=== PATIENT | female | born 1960 | race Caucasian/White ===

== ENCOUNTER → 2020-07-03 | Outpatient (CLI) | payer OTHER ==
[~2020-07-03] MED LIST: AMLODIPINE-BEN1 EAC3 PO; AMLODIPINE-BEN1 EAC4 PO; ASPIRIN EC81 MG PO; ASPIRIN325 MG PO; ATORVASTATIN CA40 MG PO; BENAZEPRIL HCL10 MG PO; NORCO 7.5-3251 EACH PO; WARFARIN SODIUM3 MG PO
== END ==
LOC: MAMO 13:22
DX: Z12.31 Encounter for screening mammogram for malignant neoplasm of breast (principal)
CPT/HCPCS: 77063; 77067

== ENCOUNTER → 2020-07-04 | Outpatient (CLI) | payer OTHER ==
[2020-07-04 08:54] LABS: HEMOGLOBIN 13.7 gm/dl (12.3-15.3); RED BLOOD COUNT 4.2 M/UL (4.00-5.10); WHITE BLOOD COUNT 4.7 K/UL (4.5-11.0)
[2020-07-04 09:22] LABS: BUN/CREATININE RATIO 23 (0-10)
== END ==
LOC: LAB 08:32
PROVIDERS: Nurse Practitioner Family
DX: E78.5 Hyperlipidemia, unspecified (principal); I10 Essential (primary) hypertension
CPT/HCPCS: 36415; 80053; 80061; 85025

== ENCOUNTER → 2020-08-01 | Outpatient (CLI) | payer OTHER | LOC: KOH-I 12:34 | DX: Z87.891 Personal history of nicotine dependence (principal) | CPT/HCPCS: 71271 ==

== ENCOUNTER → 2020-08-07 | Outpatient (CLI) | payer OTHER ==
[2020-08-07 13:35] LABS: HEMOGLOBIN 12.7 gm/dl (12.3-15.3); RED BLOOD COUNT 3.99 M/UL (4.00-5.10); WHITE BLOOD COUNT 5.2 K/UL (4.5-11.0)
[2020-08-08 13:12] LABS: ANTI-CENTROMERE B ANTIBODIES <0.2 AI (0.0-0.9); ANTISCLERODERMA-70 ANTIBODIES <0.2 AI (0.0-0.9); RNP ANTIBODIES <0.2 AI (0.0-0.9); SJOGREN'S ANTI-SS-A 0.7 AI (0.0-0.9); SJOGREN'S ANTI-SS-B <0.2 AI (0.0-0.9); SMITH ANTIBODIES <0.2 AI (0.0-0.9)
[2020-08-08 23:07] LABS: CCP ANTIBODIES IGG/IGA 4 units (0-19)
[2020-08-09 12:15] LABS: ANTIHISTONE ANTIBODIES 1.5 Units (0.0-0.9)
== END ==
LOC: LAB 12:44
PROVIDERS: Nurse Practitioner Family
DX: D89.9 Disorder involving the immune mechanism, unspecified (principal); M25.50 Pain in unspecified joint; R76.8 Other specified abnormal immunological findings in serum
CPT/HCPCS: 36415; 80053; 81001; 82570; 84156; 85025; 86038; 86200; 86235

== ENCOUNTER 2020-09-29 21:30 | Observation (INO) | payer OTHER ==
[~2020-09-29] VITALS: Ht 160 cm; Wt 77.6 kg
[~2020-09-29 21:30] MED LIST changes: -AMLODIPINE-BEN1 EAC4 PO; -ASPIRIN EC81 MG PO; -ATORVASTATIN CA40 MG PO; -BENAZEPRIL HCL10 MG PO; -WARFARIN SODIUM3 MG PO
[2020-09-30 00:22] LABS: HEMOGLOBIN 13.6 gm/dl (12.3-15.3); RED BLOOD COUNT 4.2 M/UL (4.00-5.10); WHITE BLOOD COUNT 7.8 K/UL (4.5-11.0)
[2020-09-30] MEDS ORDERED: AMLODIPINE-BEN1 EAC4 PO (08:44)
[2020-09-30] MEDS ORDERED: BENAZEPRIL HCL10 MG PO (08:44)
[2020-09-30] MEDS ORDERED: ATORVASTATIN CA40 MG PO (08:45)
[2020-09-30] MEDS ORDERED: WARFARIN SODIUM3 MG PO ×2 (08:46→08:47)
[2020-09-30] MEDS ORDERED: ASPIRIN EC81 MG PO (08:49)
--- NOTE | 2020-09-30 18:42 | NUR ---
patient alert and oriented and stated she is driving herself home. she does not have anyone to drive her home. patient refused to call friends or family.
== END 2020-09-30 18:36 | disposition home or self-care (01) ==
LOC: ER1 21:30 → CDU 09-30 00:13 → M/S 09-30 00:13 → CDU 09-30 00:13 → M/S 09-30 07:35
PROVIDERS: Emergency Medicine; Physician Assistant; ADMIT Internal Medicine Infectious Disease
DX: R07.89 Other chest pain (principal); R77.8 Other specified abnormalities of plasma proteins; D68.61 Antiphospholipid syndrome; I69.951 Hemiplegia and hemiparesis following unspecified cerebrovascular disease affecting right dominant side; I69.998 Other sequelae following unspecified cerebrovascular disease; E86.0 Dehydration; I10 Essential (primary) hypertension; R11.2 Nausea with vomiting, unspecified; R19.7 Diarrhea, unspecified; E78.5 Hyperlipidemia, unspecified; Z87.891 Personal history of nicotine dependence; Z79.82 Long term (current) use of aspirin; Z79.899 Other long term (current) drug therapy; Z79.01 Long term (current) use of anticoagulants; Z86.718 Personal history of other venous thrombosis and embolism; Z20.822 Contact with and (suspected) exposure to COVID-19
CPT/HCPCS: ECHO; 36415; 71045; 80048; 80053; 82550; 82553; 83036; 83690; 83735; 83874; 83880; 84439; 84443; 84484; 84550; 85025; 85610; 85730; 93005; 93306; 99285; G0378; J7030; Q9967; U0002

== ENCOUNTER → 2021-08-07 | Outpatient (CLI) | payer MEDICARE ==
[~2021-08-07] MED LIST changes: +AMLODIPINE-BEN1 EAC4 PO; +ASPIRIN EC81 MG PO; +ATORVASTATIN CA40 MG PO; +BENAZEPRIL HCL10 MG PO; +WARFARIN SODIUM3 MG PO
== END ==
LOC: EXRD 08:03
DX: R31.9 Hematuria, unspecified (principal); R30.0 Dysuria; R70.0 Elevated erythrocyte sedimentation rate; M25.50 Pain in unspecified joint; N28.1 Cyst of kidney, acquired
CPT/HCPCS: 76775

== ENCOUNTER 2021-11-30 20:59 | Emergency (ER) | payer MEDICARE ==
[2021-11-30 23:37] LABS: HEMOGLOBIN 12.1 gm/dl (12.3-15.3); RED BLOOD COUNT 3.83 M/UL (4.00-5.10); WHITE BLOOD COUNT 7.1 K/UL (4.5-11.0)
== END 2021-12-01 00:56 | disposition home or self-care (01) ==
LOC: ER1 20:59
PROVIDERS: Family Medicine
DX: S39.011A Strain of muscle, fascia and tendon of abdomen, initial encounter (principal); F41.9 Anxiety disorder, unspecified; I10 Essential (primary) hypertension; Z86.73 Personal history of transient ischemic attack (TIA), and cerebral infarction without residual deficits; Z88.5 Allergy status to narcotic agent; Z79.01 Long term (current) use of anticoagulants; X58.XXXA Exposure to other specified factors, initial encounter
CPT/HCPCS: 80053; 81001; 85025; 85610; 99283

== ENCOUNTER → 2021-12-01 | Outpatient (CLI) | payer MEDICARE | LOC: RAD 17:06 | DX: M25.551 Pain in right hip (principal); M16.11 Unilateral primary osteoarthritis, right hip | CPT/HCPCS: 73502 ==

== ENCOUNTER 2022-01-15 03:02 | Emergency (ER) | payer MEDICARE ==
[2022-01-15 05:01] LABS: HEMOGLOBIN 13.3 gm/dl (12.3-15.3); RED BLOOD COUNT 4.19 M/UL (4.00-5.10); WHITE BLOOD COUNT 7.1 K/UL (4.5-11.0)
[2022-01-16 22:08] LABS: CHLAMYDIA TRACHOMATIS, NAA Negative (Negative); NEISSERIA GONORRHOEAE, NAA Negative (Negative)
== END 2022-01-15 05:30 | disposition home or self-care (01) ==
LOC: ER1 03:02
PROVIDERS: Physician Assistant
DX: N89.8 Other specified noninflammatory disorders of vagina (principal); I10 Essential (primary) hypertension; Z86.718 Personal history of other venous thrombosis and embolism; Z79.01 Long term (current) use of anticoagulants; Z86.73 Personal history of transient ischemic attack (TIA), and cerebral infarction without residual deficits; Z87.891 Personal history of nicotine dependence; Z88.8 Allergy status to other drugs, medicaments and biological substances
CPT/HCPCS: 80048; 81001; 85025; 85610; 87070; 87205; 87210; 99284